=== PATIENT | female | born 1960 | race Caucasian/White ===

== ENCOUNTER 2018-08-23 14:50 | Emergency (ER) | payer OTHER ==
[~2018-08-23] VITALS: Ht 182.9 cm; Wt 83.9 kg
[2018-08-23 14:56] VITALS: BP 137/82
[2018-08-23] MEDS ORDERED: CYCL10TA2 PO (15:24)
[2018-08-23] MEDS ORDERED: NAPR-514 PO (15:24)
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
== END 2018-08-23 15:32 | disposition home or self-care (01) ==
LOC: ER 14:50
DX: M25.512 Pain in left shoulder (principal); M25.511 Pain in right shoulder; M25.561 Pain in right knee; F17.200 Nicotine dependence, unspecified, uncomplicated; Z88.0 Allergy status to penicillin; V43.52XA Car driver injured in collision with other type car in traffic accident, initial encounter; Y93.89 Activity, other specified; Y92.410 Unspecified street and highway as the place of occurrence of the external cause; Y99.8 Other external cause status
CPT/HCPCS: 99283